=== PATIENT | female | born 1950 | race Caucasian/White ===

== ENCOUNTER 2016-12-07 11:32 | Day surgery (SDC) | payer MEDICARE, OTHER ==
[~2016-12-07 11:32] MED LIST: ACETAMINOPHEN 325 MG TABLET PO PRN; ACETYLCHOLINE CHLORIDE 20 DROP KIT IO PRN; BUPIVACAINE HCL/PF 30 ML VIAL IJ PRN; CYCLOPENTOLATE HCL 20 DROP BTL LEFTEYE PRN; DEXTROSE 5%-0.5 NORMAL SALINE 1,000 ML IV PRN; EPINEPHrine 1 MG/ML AMPUL IO PRN; HYALURONATE SODIUM 0.4 ML DISP.SYRIN IO PRN; HYALURONATE SODIUM 0.85 ML DISP.SYRIN IO PRN; LIDOCAINE HCL/PF 200 MG/5 ML AMPUL TP PRN; LIDOCAINE HCL/PF 5 ML VIAL IO PRN; NORMAL SALINE 3 ML BOX IV PRN; TETRACAINE HCL 150 DROP BTL OP PRN
[2016-12-07] MEDS: TROPICAMIDE 150 DROP BTL LEFTEYE PRN ×3 (12:25→13:03)
[2016-12-07] MEDS: PHENYLEPHRINE HCL 50 DROP BTL LEFTEYE PRN ×3 (12:25→13:02)
[2016-12-07 17:02] VITALS: BP 121/68
== END 2016-12-07 11:33 | disposition home or self-care (01) ==
LOC: AMB 11:32
PROVIDERS: ATTEND Ophthalmology
PROC: 08RK3JZ Replacement of Left Lens with Synthetic Substitute, Percutaneous Approach (ICD-10-PCS; principal; 2016-12-07 13:15)
DX: H26.9 Unspecified cataract (principal)